=== PATIENT | male | born 1955 | race Caucasian/White ===

== ENCOUNTER → 2020-07-24 15:32 | Outpatient (BNVA) | payer OTHER, SELFPAY | PROVIDERS: PCP Nurse Practitioner Family; Visit Provider Internal Medicine Pulmonary Disease | DX: J90 Pleural effusion, not elsewhere classified (principal); R06.00 Dyspnea, unspecified | CPT/HCPCS: 99202 ==

== ENCOUNTER 2020-08-06 15:32 | Outpatient (REF) | payer OTHER, SELFPAY ==
--- NOTE | 2020-08-06 17:22 | PFT_ITS ---
Forced vital capacity, FEV1, [id number] are normal. MVV is slightly decreased, may be due to effort related issue. Post bronchodilator therapy, no significant change, but MVV is improved. Total lung capacity and residual volume normal. Diffusion capacity normal. CONCLUSION: Normal pulmonary function test, slight decrease in the MVV, probably effort related and did improve after bronchodilator therapy. Clinical correlation recommended. MD REHAN Culver/MODL / [id number]
== END 2020-08-06 15:33 | disposition home or self-care (01) ==
LOC: HO.RESP 15:32
PROVIDERS: PCP Nurse Practitioner Family; Visit Provider Internal Medicine Pulmonary Disease
DX: R06.00 Dyspnea, unspecified (principal)
CPT/HCPCS: 94060; 94727; 94729

== ENCOUNTER → 2020-08-27 14:05 | Outpatient (BNVA) | payer OTHER, SELFPAY | PROVIDERS: PCP Nurse Practitioner Family; Visit Provider Internal Medicine Pulmonary Disease ==

== ENCOUNTER → 2020-09-03 10:26 | Outpatient (BNVA) | payer OTHER, SELFPAY | PROVIDERS: PCP Nurse Practitioner Family; Visit Provider Internal Medicine Pulmonary Disease | DX: R06.00 Dyspnea, unspecified (principal) | CPT/HCPCS: 99212 ==

== ENCOUNTER 2020-09-06 10:48 | Outpatient (REF) | payer OTHER, SELFPAY ==
--- NOTE | ~2020-09-06 | XR_ITS ---
EXAMINATION: XR CHEST CLINICAL INFORMATION: Dyspnea COMPARISON: None TECHNIQUE: 2 views of the chest were obtained. FINDINGS: The cardiac and mediastinal contours are normal. The lungs are clear. There is no pleural effusion or pneumothorax. There are degenerative changes of the thoracic spine. There are postsurgical changes to the cervical spine. XR/XR chest 2V IMPRESSION: No evidence for acute disease in the chest.
== END 2020-09-06 10:49 | disposition home or self-care (01) ==
LOC: HO.XRAY 10:48
PROVIDERS: PCP Nurse Practitioner Family; Visit Provider Internal Medicine Pulmonary Disease
DX: R06.00 Dyspnea, unspecified (principal); J90 Pleural effusion, not elsewhere classified; I51.89 Other ill-defined heart diseases
CPT/HCPCS: 71046; 93005

== ENCOUNTER 2020-09-18 11:53 | Emergency (ER) | payer OTHER, SELFPAY ==
--- NOTE | 2020-09-18 | ECG_ITS ---
Test Reason : CHEST PAIN Blood Pressure : / mmHG Vent. Rate : 099 BPM Atrial Rate : 099 BPM P-R Int : 136 ms QRS Dur : 134 ms QT Int : 378 ms P-R-T Axes : 034 -21 056 degrees QTc Int : 485 ms Normal sinus rhythm Left bundle branch block Abnormal ECG No previous ECGs available Referred By: Generic ED Physician Electronically Signed By:KILEY RICH MD
--- NOTE | ~2020-09-18 | CT_ITS ---
EXAMINATION: CT ANGIOGRAM OF THE CHEST WITH AND WITHOUT CONTRAST (CT PULMONARY ANGIOGRAM FOR PE) CLINICAL INFORMATION: Shortness of breath and positive d-dimer COMPARISON: Chest x-ray earlier the same day TECHNIQUE: Prior to contrast administration, noncontrast localization images were obtained. Subsequently, multidetector volumetric imaging was performed from the thoracic inlet to below the diaphragms following the administration of 71 mL Omnipaque 350 intravenous contrast. No contrast reaction reported Sagittal, coronal, and MIP oblique sagittal reformatted images were obtained on the CT workstation, uploaded to PACS, and reviewed. This CT examination was performed using dose optimization techniques as appropriate, variously including the following: *Automated exposure control *Adjustment of mA and/or kV according to patient size (this includes techniques or standardized protocols for targeted exams where dose is matched to indication/reason for exam; i.e. extremities or head) *Use of iterative reconstruction technique Total exam dose-length product 406 mGy-cm FINDINGS: QUALITY OF STUDY/CONTRAST BOLUS: Satisfactory. PULMONARY ARTERIES: No central or segmental pulmonary emboli. THORACIC AORTA: No aneurysm or dissection. LUNG: Bibasilar atelectasis. Diffuse groundglass opacity, likely due to an expiratory scan. PLEURA: No pleural effusion or pneumothorax. MEDIASTINUM: Mild cardiomegaly. No pericardial effusion. No hilar or mediastinal lymphadenopathy. No evidence of septal bowing or right heart strain. CHEST WALL/AXILLA: No axillary or internal mammary lymphadenopathy. OSSEOUS STRUCTURES: No acute or suspicious osseous abnormality. UPPER ABDOMEN: There is a well-circumscribed water density structure in the right lobe of liver adjacent to gallbladder fossa likely a cyst. No biliary ductal dilatation. Gallbladder normal in appearance. No adrenal mass. No reflux of contrast into the hepatic veins to suggest elevated right heart pressures. CT/CT angio chest PE protocol IMPRESSION: No pulmonary embolus. Mild bibasilar atelectasis. Diffuse groundglass opacity throughout the lungs, most likely reflecting an expiratory scan rather than diffuse pulmonary abnormality. VTE: negative
--- NOTE | ~2020-09-18 | XR_ITS ---
EXAMINATION: XR CHEST CLINICAL INFORMATION: Shortness of breath COMPARISON: Chest radiographs 09/06/2020 TECHNIQUE: Portable upright AP view of the chest was obtained. FINDINGS: There are low lung volumes. The lungs are clear. The vascularity is normal. The heart is normal in size. The hilar and mediastinal contours are normal. There are mild multilevel level degenerative changes thoracic spine. XR/XR chest 1V IMPRESSION: Unremarkable examination.
[2020-09-18 12:05] VITALS: BP 156/88; PULSE 90; RESP 25; TEMP 36.9; O2SAT 97; BMI 34.5
--- NOTE | 2020-09-18 12:14 | ED_ITS ---
HPI - SOB/Dyspnea General Chief Complaint: Dyspnea Stated Complaint: CHEST PAIN Time Seen by Provider: 09/18/20 12:13 Source: patient Mode of arrival: ambulatory Limitations: no limitations History of Present Illness HPI Narrative: 2 months of shortness of breath including CT of chest, nuclear stress, echo, CXR. Patient states that he is unsure of his diagnosis. Patient feel that he has increased shortness of breath MD elicited complaint: shortness of breath Onset (ago): month(s) Timing: progressively worsening Severity: moderate Exacerbating factors: exertion Related Data Home Medications Medication Instructions Recorded Confirmed alfuzosin 10 mg tablet,extended 10 mg PO DAILY 07/24/20 release 24 hr cholecalciferol (vitamin D3) 125 125 mcg PO DAILY 07/24/20 mcg (5,000 unit) capsule finasteride 5 mg tablet 5 mg PO DAILY 07/24/20 levothyroxine 75 mcg tablet 75 mcg PO DAILY 07/24/20 sertraline 25 mg tablet 50 mg PO DAILY tab 07/24/20 trazodone 150 mg tablet 150 mg PO BEDTIME 07/24/20 Previous Rx's Medication Instructions Recorded furosemide 20 mg tablet 20 mg PO DAILY 30 Days #30 tab 07/24/20 metolazone 5 mg tablet 5 mg PO DAILY #90 tab 08/28/20 Allergies Allergy/AdvReac Type Severity Reaction Status Date / Time No Known Allergies Allergy Verified 09/06/20 10:49 Review of Systems Constitutional: Constitutional: Reports no additional constitutional complaints Eyes: Eyes: Reports no additional eye complaints ENT: Denies dizziness Cardiovascular: Cardiovascular: Reports no additional cardiovascular complaints Respiratory: Respiratory: Reports as per HPI Gastrointestinal: Gastrointestinal: Reports no additional gastrointestinal complaints Musculoskeletal: Musculoskeletal: Reports no additional musculoskeletal complaints Integumentary/Breasts: Skin/Breast: Denies rash Neurologic: Reports system reviewed and no additional complaints, except as documented, Denies dizziness and Denies Sensory deficit (Neuro) Psychiatric: Psychiatric: Denies anxiety PMFSH Past Medical History Medical History BPH (benign prostatic hyperplasia) Hypothyroidism Social History Social History (Updated 07/24/20 @ 15:40 by Linda Luna MA) Alcohol intake: never Smoking Status: Never smoker Use of substances other than those prescribed or required for medical reasons: No Advance Directives: No Advance Directives Information Provided: Yes Physical Exam Vital Signs: Vital Signs: Last Vital Signs Temp 98.5 F 09/18/20 12:05 Pulse 90 09/18/20 12:05 Resp 25 H 09/18/20 12:05 BP 156/88 H 09/18/20 12:05 Pulse Ox 97 09/18/20 12:05 Body Mass Index 34.5 Const: Other: Male looking short of breath, coughing Nutritional Appearance: overweight Orientation/consciousness: oriented to person and patient oriented x3 Limitations: no limitations HENMT: Head: Yes normal to inspection Ears: external ears normal General nose exam: Normal external nose present Mouth: Normal oral and palatal mucosa present and oropharynx normal Throat: Yes posterior oropharynx normal Eyes: General: appearance normal, both eyes and all related structures Neck: Other: supple Neck: Yes normal visual inspection Chest: Chest palpation & inspection: normal inspection of the chest Resp: Auscultation: clear to auscultation bilaterally Cardio: Jugular venous distension: no JVD Rate: regular rate Rhythm: regular rhythm Heart sounds: S1 normal heart sound present and S2 normal heart sound present GI: Inspection: Yes normal to inspection Palpation (GI): Soft to palpation, nontender and No hepatosplenomegaly present Auscultation: normal bowel sounds : General: Yes no CVA tenderness Back/Spine/Pelvis: Back: no CVA tenderness Skin: General skin exam: no rashes or lesions noted Neuro: General: oriented to person and patient oriented x3 Cranial nerves: Yes CN's II-XII intact bilaterally Motor exam (neuro): 5/5 motor strength present throughout Sensory Exam: No Sensory deficit (Neuro) Extrem: General: Yes normal to inspection Psych: Appearance: grossly normal Course Course Course Narrative: discussed with Dr. Holley will obtain bedside echo Reevaluation(s) Reevaluation #1: too late in the day for echo will obtain as outpatient MDM - SOB/Dyspnea MDM Narrative Medical decision making narrative: Also considered MN, LBBB on EKG is baseline Differential Diagnosis Differential diagnosis: Likely acute exacerbation of chronic obstructive airways disease, congestive heart failure, pulmonary embolism and pleural effusion Lab Data Result diagrams: 09/18/20 12:44 09/18/20 12:44 Labs: Lab Results 09/18/20 09/18/20 09/18/20 Range/Units 12:44 12:44 12:44 WBC 7.9 (4.8-10.8) X10*3/uL RBC 5.14 (4.60-5.80) X10*6/uL Hgb 15.9 (14.0-18.0) g/dl Hct 45.5 (42-52) % MCV 88.5 (80-98) fL MCH 30.9 (27.0-33.0) pg MCHC 34.9 (31.0-36.0) g/dl RDW 12.1 (11.0-16.0) % Plt Count 279 (160-400) X10*3/uL MPV 10.4 (9.4-12.4) fL Immature Gran % (Auto) 0.1 (0.0-0.4) % Neut % (Auto) 59.5 (45-73) % Lymph % (Auto) 28.1 (20-40) % [place] % (Auto) 11.5 H (2-11) % Eos % (Auto) 0.4 (0-4) % Baso % (Auto) 0.4 (0-2) % Lymph # (Auto) 2.2 (1.2-4.9) X10*3/uL [place] # (Auto) 0.9 (0.1-1.2) X10*3/uL Eos # (Auto) 0.0 (0.0-0.4) X10*3/uL Baso # (Auto) 0.0 (0.0-0.2) X10*3/uL Abs Immat Gran (auto) 0.01 (0.00-0.03) X10*3/uL Absolute Neuts (auto) 4.7 (2.0-8.3) X10*3/uL Absolute Nucleated RBC 0.000 (0.0-0.012) X10*3/uL Nucleated RBC % (auto) 0.0 (0.0-0.2) /100WBC D-Dimer 459 NG/ML ABG pH (7.35-7.45) ABG pCO2 (32-45) mmHg ABG pO2 (83-108) mmHg ABG HCO3 (22-26) mmol/L ABG O2 Saturation % ABG Base Excess Oxygen Given Sodium 137 (135-145) mmol/L Potassium 3.8 (3.3-5.1) mmol/L Chloride 97 (96-108) mmol/L Carbon Dioxide 30 H (22-29) mmol/L Anion Gap 14 (12-20) BUN 18 H (9-16) mg/dL Creatinine 1.01 (0.5-1.4) mg/dL Estim Creat Clear Calc 88.2 Estimated GFR > 60 Random Glucose 115 (60-115) mg/dL Calcium 10.3 H (8.4-10.2) mg/dL Troponin I High Sens (<3.5-35.0) ng/L 09/18/20 09/18/20 Range/Units 12:44 13:00 WBC (4.8-10.8) X10*3/uL RBC (4.60-5.80) X10*6/uL Hgb (14.0-18.0) g/dl Hct (42-52) % MCV (80-98) fL MCH (27.0-33.0) pg MCHC (31.0-36.0) g/dl RDW (11.0-16.0) % Plt Count (160-400) X10*3/uL MPV (9.4-12.4) fL Immature Gran % (Auto) (0.0-0.4) % Neut % (Auto) (45-73) % Lymph % (Auto) (20-40) % [place] % (Auto) (2-11) % Eos % (Auto) (0-4) % Baso % (Auto) (0-2) % Lymph # (Auto) (1.2-4.9) X10*3/uL [place] # (Auto) (0.1-1.2) X10*3/uL Eos # (Auto) (0.0-0.4) X10*3/uL Baso # (Auto) (0.0-0.2) X10*3/uL Abs Immat Gran (auto) (0.00-0.03) X10*3/uL Absolute Neuts (auto) (2.0-8.3) X10*3/uL Absolute Nucleated RBC (0.0-0.012) X10*3/uL Nucleated RBC % (auto) (0.0-0.2) /100WBC D-Dimer NG/ML ABG pH 7.61 H* (7.35-7.45) ABG pCO2 23 L (32-45) mmHg ABG pO2 107 (83-108) mmHg ABG HCO3 23 (22-26) mmol/L ABG O2 Saturation 98.0 % ABG Base Excess 4.6 Oxygen Given ROOM AIR Sodium (135-145) mmol/L Potassium (3.3-5.1) mmol/L Chloride (96-108) mmol/L Carbon Dioxide (22-29) mmol/L Anion Gap (12-20) BUN (9-16) mg/dL Creatinine (0.5-1.4) mg/dL Estim Creat Clear Calc Estimated GFR Random Glucose (60-115) mg/dL Calcium (8.4-10.2) mg/dL Troponin I High Sens 5.5 (<3.5-35.0) ng/L Imaging Data CT scan - chest: Radiologist's impression: No PE, question pulmonary parenchymal disease but most likely to poor inspiration Chest x-ray: Radiologist's impression: poor inspiration no infiltrate ECG Data Attestation: I personally reviewed and interpreted this ECG as follows: Interpretation: sinus 100, LBBB, old finding Critical Care Time Critical Care Time Attestation: I spent 30 minutes of critical care, with interventions, assessments, speaking to patient, consultants, and family. Discharge Plan Discharge Clinical Impression: Diastolic dysfunction, Dyspnea on exertion Patient Disposition: Home, Self-Care Instructions: Dyspnea (ED) Prescriptions: No Action metolazone 5 mg tablet 5 mg PO DAILY Qty: 90 RF: 0 furosemide [Lasix] 20 mg tablet 20 mg PO DAILY 30 Days Qty: 30 RF: 3 Referrals: Luisito Holley MD [Physician] - 2 days
[2020-09-18 12:51] LABS: MANUAL DIFF FLAG NO
[2020-09-18 12:52] LABS: Basophils Percent Auto 0.4 % (0-2); Eosinophils Percent Auto 0.4 % (0-4); Hematocrit 45.5 % (42-52); Hemoglobin 15.9 g/dl (14.0-18.0); Imm Gran Abs Auto 0.01 X10*3/uL (0.00-0.03); Imm Gran Pct Auto 0.1 % (0.0-0.4); Lymphocytes Absolute Auto 2.2 X10*3/uL (1.2-4.9); Lymphocytes Percent Auto 28.1 % (20-40); Mean Corpuscular HGB Conc 34.9 g/dl (31.0-36.0); Mean Corpuscular Hemoglobin 30.9 pg (27.0-33.0); Mean Corpuscular Volume 88.5 fL (80-98); Mean Platelet Volume 10.4 fL (9.4-12.4); Monocytes Absolute Auto 0.9 X10*3/uL (0.1-1.2); Monocytes Percent Auto 11.5 % (2-11); Neutrophils Absolute Auto 4.7 X10*3/uL (2.0-8.3); Neutrophils Percent Auto 59.5 % (45-73); Platelet Count 279 X10*3/uL (160-400); Red Blood Count 5.14 X10*6/uL (4.60-5.80); Red Cell Distribution Width 12.1 % (11.0-16.0); White Blood Count 7.9 X10*3/uL (4.8-10.8)
[2020-09-18 13:01] VITALS: O2SAT 98
[2020-09-18 13:01] LABS: D Dimer 459 NG/ML
[2020-09-18 13:08] LABS: Pt Ventilation O2% ROOM AIR
[2020-09-18 13:13] LABS: ABG PCO2 23 mmHg (32-45); Base Excess ABG 4.6; HCO3 ABG 23 mmol/L (22-26); PO2 ABG 107 mmHg (83-108)
[2020-09-18 13:15] LABS: pH ABG 7.61 (7.35-7.45)
[2020-09-18 13:39] LABS: Troponin-I High Sensitivity 5.5 ng/L (<3.5-35.0)
[2020-09-18 13:59] LABS: Anion Gap 14 (12-20); Blood Urea Nitrogen 18 mg/dL (9-16); Calcium 10.3 mg/dL (8.4-10.2); Carbon Dioxide 30 mmol/L (22-29); Chloride 97 mmol/L (96-108); Creatinine Clr Calc Pharmacy 88.2; Estimated Glomerular Filt Rate > 60; Glucose Random 115 mg/dL (60-115); Potassium 3.8 mmol/L (3.3-5.1); Sodium 137 mmol/L (135-145)
[2020-09-18] MEDS: iohexoL 350 MG/ML 100 ML INFUS..BTL IV (14:28)
[2020-09-18 16:06] LABS: Influenza A PCR NEGATIVE (Negative); Influenza B PCR NEGATIVE (Negative); Resp Syncy Virus RNA Qual PCR NEGATIVE (Negative); SARS COV2 PCR INHOUSE NEGATIVE (Negative)
[2020-09-18 16:23] VITALS: BP 134/84; PULSE 73; RESP 20; O2SAT 99
== END 2020-09-18 16:24 | disposition home or self-care (01) ==
PROVIDERS: Emergency Provider Emergency Medicine
DX: I50.30 Unspecified diastolic (congestive) heart failure (principal); R07.89 Other chest pain; R06.09 Other forms of dyspnea; Z20.822 Contact with and (suspected) exposure to COVID-19; E03.9 Hypothyroidism, unspecified; N40.0 Benign prostatic hyperplasia without lower urinary tract symptoms; Z79.899 Other long term (current) drug therapy
CPT/HCPCS: 0241U; 36415; 71045; 71275; 80048; 82803; 84484; 85025; 85379; 93005; 99285; 99291; Q9967

== ENCOUNTER 2020-09-30 | Outpatient (REF) | payer OTHER, SELFPAY ==
--- NOTE | ~2020-09-30 | CT_ITS ---
EXAMINATION: CT CHEST WITHOUT CONTRAST CLINICAL INFORMATION: Pleural effusion. COMPARISON: CT angiogram chest 09/18/2020. TECHNIQUE: Multidetector volumetric CT imaging of the chest was done. Axial MIP volume rendering provided. Sagittal and coronal reformatted images were obtained. This CT examination was performed using dose optimization techniques as appropriate, variously including the following: *Automated exposure control *Adjustment of mA and/or kV according to patient size (this includes techniques or standardized protocols for targeted exams where dose is matched to indication/reason for exam; i.e. extremities or head) *Use of iterative reconstruction technique DLP: 191 mGy-cm. FINDINGS: BULWARK CARPENTER: Elevated right hemidiaphragm. The lungs are otherwise clear. LUNGS: The lungs are somewhat expanded with elevated right hemidiaphragm. A subpleural 3 mm noncalcified nodule left lower lobe superior segment axial image 131/5. There is a 4 mm calcified nodule left upper lobe image 192/5. No additional nodule seen. There is plate-like atelectasis or scarring left lung base, lingula and right middle lobe. MEDIASTINUM: The heart size and the great vessels are normal caliber. The thyroid glands are symmetric and normal. The central trachea and bronchi are widely patent. No abnormal mediastinal or hilar lymphadenopathy. No pericardial effusion seen. PLEURA: There is no pleural effusion. No pleural mass or thickening. AXILLA: No lymphadenopathy. UPPER ABDOMEN: Unremarkable. OSSEOUS STRUCTURES: There is no lytic or sclerotic process seen. There is mild ventral spondylosis mid dorsal spine. CT/CT chest wo con IMPRESSION: 3 mm subpleural noncalcified and 4 mm calcified nodule left upper lobe are stable. Atelectasis or scarring left lower lobe, lingula and right middle lobe.
== END 2020-09-30 00:01 ==
LOC: HO.CT
PROVIDERS: Visit Provider Internal Medicine Pulmonary Disease
DX: R06.00 Dyspnea, unspecified (principal); J90 Pleural effusion, not elsewhere classified
CPT/HCPCS: 71250

== ENCOUNTER → 2020-10-08 15:31 | Outpatient (BNVA) | payer OTHER, SELFPAY | PROVIDERS: Visit Provider Internal Medicine Pulmonary Disease | DX: R06.00 Dyspnea, unspecified (principal); J90 Pleural effusion, not elsewhere classified | CPT/HCPCS: 99212 ==

== ENCOUNTER 2020-12-20 13:26 | Inpatient (IN) | payer OTHER, SELFPAY ==
--- NOTE | 2020-12-20 | ECG_ITS ---
Test Reason : CHEST PAIN Blood Pressure : / mmHG Vent. Rate : 068 BPM Atrial Rate : 068 BPM P-R Int : 150 ms QRS Dur : 078 ms QT Int : 400 ms P-R-T Axes : 020 000 012 degrees QTc Int : 425 ms Normal sinus rhythm Cannot rule out Anterior infarct , age undetermined Abnormal ECG When compared with ECG of 18-SEP-2020 11:58, Left bundle branch block is no longer Present Minimal criteria for Anterior infarct are now Present Referred By: Evangelina Powers Electronically Signed By:URIEL STEEN
--- NOTE | ~2020-12-20 | XR_ITS ---
EXAMINATION: XR CHEST CLINICAL INFORMATION: Chest pain COMPARISON: Chest CT 09/30/2020 TECHNIQUE: Frontal view of the chest was obtained. FINDINGS: The lungs are hypoexpanded and clear. Heart size and pulmonary vascularity is normal. No gross bony edema is seen. XR/XR chest 1V IMPRESSION: Hypoexpanded lungs without acute process.
--- NOTE | ~2020-12-20 | CT_ITS ---
EXAMINATION: CT ANGIOGRAM OF THE CHEST WITH AND WITHOUT CONTRAST (CT PULMONARY ANGIOGRAM FOR PE) CLINICAL INFORMATION: Reason for Exam Elevated D-dimer. SOB COMPARISON: CT chest 09/30/2020, CT angiogram chest 10/16/2020 TECHNIQUE: Prior to contrast administration, noncontrast localization images were obtained. Subsequently, multidetector volumetric imaging was performed from the thoracic inlet to below the diaphragms following the administration of 65 mL Omnipaque 350 intravenous contrast. No contrast reaction reported Sagittal, coronal, and MIP oblique sagittal reformatted images were obtained on the CT workstation, uploaded to PACS, and reviewed. This CT examination was performed using dose optimization techniques as appropriate, variously including the following: *Automated exposure control *Adjustment of mA and/or kV according to patient size (this includes techniques or standardized protocols for targeted exams where dose is matched to indication/reason for exam; i.e. extremities or head) *Use of iterative reconstruction technique Total exam dose-length product 331 mGy-cm FINDINGS: QUALITY OF STUDY/CONTRAST BOLUS: Satisfactory. PULMONARY ARTERIES: No central or segmental pulmonary emboli. THORACIC AORTA: No aneurysm or dissection. LUNG: No focal consolidation, nodules or masses. There is mild prominence of interstitial markings compared with the prior study suggesting possibly mild pulmonary vascular congestion. No overt pulmonary edema is see.. Left upper lobe calcified granuloma is present PLEURA: Trace pleural effusions are present. MEDIASTINUM: There is mild cardiac enlargement which appears increased in size when compared to the prior study. The heart measured a maximum transverse dimension of just under 12 cm previously and currently measures just over 14 cm. No pericardial effusion. No hilar or mediastinal lymphadenopathy. No evidence of septal bowing or right heart strain. CHEST WALL/AXILLA: No axillary or internal mammary lymphadenopathy. OSSEOUS STRUCTURES: No acute or suspicious osseous abnormality. UPPER ABDOMEN: Unremarkable. No reflux of contrast into the hepatic veins to suggest elevated right heart pressures. CT/CT angio chest PE protocol IMPRESSION: No evidence of pulmonary emboli Interval increase in heart size with question of mild pulmonary vascular congestion VTE: negative
[2020-12-20 13:30] VITALS: BP 160/90; PULSE 78; O2SAT 96
[2020-12-20 13:38] VITALS: BP 155/80; PULSE 71; RESP 16; TEMP 36.7; O2SAT 98; BMI 33.4
[2020-12-20 13:46] VITALS: PULSE 78
[2020-12-20 14:10] LABS: MANUAL DIFF FLAG NO
[2020-12-20 14:17] LABS: Basophils Percent Auto 0.6 % (0-2); Eosinophils Percent Auto 0.6 % (0-4); Hematocrit 44.8 % (42-52); Hemoglobin 15.3 g/dl (14.0-18.0); Imm Gran Abs Auto 0.02 X10*3/uL (0.00-0.03); Imm Gran Pct Auto 0.3 % (0.0-0.4); Lymphocytes Absolute Auto 1.8 X10*3/uL (1.2-4.9); Lymphocytes Percent Auto 25.9 % (20-40); Mean Corpuscular HGB Conc 34.2 g/dl (31.0-36.0); Mean Corpuscular Hemoglobin 31.4 pg (27.0-33.0); Mean Corpuscular Volume 91.8 fL (80-98); Mean Platelet Volume 10.7 fL (9.4-12.4); Monocytes Absolute Auto 0.7 X10*3/uL (0.1-1.2); Monocytes Percent Auto 9.5 % (2-11); Neutrophils Absolute Auto 4.4 X10*3/uL (2.0-8.3); Neutrophils Percent Auto 63.1 % (45-73); Platelet Count 203 X10*3/uL (160-400); Red Blood Count 4.88 X10*6/uL (4.60-5.80); Red Cell Distribution Width 12.3 % (11.0-16.0)
[2020-12-20 14:22] LABS: INTERNATIONAL NORM RATIO 1.1 (0.9-1.1); Prothrombin Time 12.7 SEC (10.8-13.0)
[2020-12-20 14:25] LABS: D Dimer 651 NG/ML; Partial Thromboplastin Time 32.8 SEC (24.1-38.0)
[2020-12-20 14:41] LABS: B Type Natriuretic Peptide 18 pg/mL (<100); Troponin-I High Sensitivity 3.6 ng/L (<3.5-35.0)
[2020-12-20 14:50] LABS: COVID-19 Test Negative (Negative); IDNOW Serial# 9DD0AD1C
[2020-12-20 15:10] LABS: Alanine Aminotransferase 20 U/L (0-40); Albumin Level 4.1 g/dL (3.5-5.0); Alkaline Phosphatase 69 U/L (39-117); Aspartate Amino Transferase 13 U/L (5-37); Bilirubin Direct 0.2 mg/dL (0.0-0.5); Bilirubin Total 0.5 mg/dL (0.0-1.0); Magnesium 2.1 mg/dL (1.6-2.6); Total Protein 6.2 g/dL (6.5-8.0)
[2020-12-20 15:31] LABS: Thyroid Stimulating Hormone 1.26 uIU/mL (0.32-4.0)
--- NOTE | 2020-12-20 15:33 | ED_ITS ---
HPI - Chest Pain General Chief Complaint: Chest Pain Stated Complaint: chest pain, sob Time Seen by Provider: 12/20/20 13:33 Source: patient and EMS Mode of arrival: EMS History of Present Illness HPI narrative: 65-year-old male with a past medical history of BPH, hypothyroid, presenting to the ED complaining of intermittent episodes of sharp chest pain and SOB lasting a few seconds while at rest today. Reports exertional SOB which he is being worked up for. Admits to nonproductive cough. Denies fever, chills, recent travel, history of blood clots, abdominal pain, nausea/vomiting, LE edema. Echo 10/13 did show small shunt from left to right only with Valsalva complaint: chest pain and chest discomfort Related Data Home Medications Medication Instructions Recorded Confirmed alfuzosin 10 mg tablet,extended 10 mg PO BEDTIME 07/24/20 12/20/20 release 24 hr finasteride 5 mg tablet 5 mg PO BEDTIME 07/24/20 12/20/20 levothyroxine 75 mcg tablet 75 mcg PO DAILY 07/24/20 12/20/20 sertraline 50 mg PO BEDTIME 12/20/20 12/20/20 trazodone 100 mg PO BEDTIME 12/20/20 12/20/20 Allergies Allergy/AdvReac Type Severity Reaction Status Date / Time No Known Allergies Allergy Verified 10/08/20 15:34 [facility] Past Medical History Medical History (Updated 12/20/20 @ 18:13 by LISSETTE Espino) BPH (benign prostatic hyperplasia) Bunion Depression Hypothyroidism Surgical History (Updated 12/20/20 @ 13:43 by Amarilys Chahal) H/O hand surgery H/O neck surgery S/P rotator cuff repair Social History Social History (Updated 07/24/20 @ 15:40 by Linda Luna MA) Alcohol intake: current Alcohol intake frequency: a few times a week Patient Tobacco Use Status: Never used Tobacco Use of substances other than those prescribed or required for medical reasons: No Advance Directives: Yes Advance Directives Information Provided: Yes Advance Directives on File: No Physical Exam Vital Signs: Vital Signs: Last Vital Signs Temp 98.7 F 12/20/20 16:22 Pulse 65 12/20/20 16:22 Resp 18 12/20/20 16:22 BP 146/79 H 12/20/20 16:22 Pulse Ox 97 12/20/20 16:22 Body Mass Index 33.4 Course Course Course Narrative: -patient had short run of V-tach on monitor -1535--no leukocytosis, D-dimer elevated to 651 > will obtain CTA to rule out PE -troponin less than 5 > will obtain 3 hour repeat XR chest 1V IMPRESSION: Hypoexpanded lungs without acute process. 1810- CT angio chest PE protocol IMPRESSION: No evidence of pulmonary emboli Interval increase in heart size with question of mild pulmonary vascular congestion VTE: negative -1814--patient admitted to hospitalist service MDM - Chest Pain MDM Narrative Medical decision making narrative: 65-year-old male with a past medical history of BPH, hypothyroid, presenting to the ED complaining of intermittent episodes of sharp chest pain and SOB lasting a few seconds while at rest today. Reports exertional SOB which he is being worked up for. Admits to nonproductive cough. Denies fever, chills, recent travel, history of blood clots, abdominal pain, nausea/vomiting, LE edema. Echo 10/13 did show small shunt from left to right only with Valsalva Medical Records Data Attestation: I reviewed the patient's medical records. Lab Data Attestation: I reviewed the patient's lab results. Result diagrams: 12/20/20 14:07 12/20/20 14:42 Labs: Lab Results 12/20/20 12/20/20 12/20/20 Range/Units 14:07 14:07 14:07 WBC 7.0 (4.8-10.8) X10*3/uL RBC 4.88 (4.60-5.80) X10*6/uL Hgb 15.3 (14.0-18.0) g/dl Hct 44.8 (42-52) % MCV 91.8 (80-98) fL MCH 31.4 (27.0-33.0) pg MCHC 34.2 (31.0-36.0) g/dl RDW 12.3 (11.0-16.0) % Plt Count 203 D (160-400) X10*3/uL MPV 10.7 (9.4-12.4) fL Immature Gran % (Auto) 0.3 (0.0-0.4) % Neut % (Auto) 63.1 (45-73) % Lymph % (Auto) 25.9 (20-40) % [place] % (Auto) 9.5 (2-11) % Eos % (Auto) 0.6 (0-4) % Baso % (Auto) 0.6 (0-2) % Lymph # (Auto) 1.8 (1.2-4.9) X10*3/uL [place] # (Auto) 0.7 (0.1-1.2) X10*3/uL Eos # (Auto) 0.0 (0.0-0.4) X10*3/uL Baso # (Auto) 0.0 (0.0-0.2) X10*3/uL Abs Immat Gran (auto) 0.02 (0.00-0.03) X10*3/uL Absolute Neuts (auto) 4.4 (2.0-8.3) X10*3/uL Absolute Nucleated RBC 0.000 (0.0-0.012) X10*3/uL Nucleated RBC % (auto) 0.0 (0.0-0.2) /100WBC PT 12.7 (10.8-13.0) SEC INR 1.1 (0.9-1.1) APTT 32.8 (24.1-38.0) SEC D-Dimer 651 NG/ML Sodium (135-145) mmol/L Potassium (3.3-5.1) mmol/L Chloride (96-108) mmol/L Carbon Dioxide (22-29) mmol/L Anion Gap (12-20) BUN (9-16) mg/dL Creatinine (0.5-1.4) mg/dL Estim Creat Clear Calc Estimated GFR Random Glucose (60-115) mg/dL Calcium (8.4-10.2) mg/dL Magnesium (1.6-2.6) mg/dL Total Bilirubin (0.0-1.0) mg/dL Direct Bilirubin (0.0-0.5) mg/dL AST (5-37) U/L ALT (0-40) U/L Alkaline Phosphatase (39-117) U/L Troponin I High Sens (<3.5-35.0) ng/L B-Natriuretic Peptide 18 (<100) pg/mL Total Protein (6.5-8.0) g/dL Albumin (3.5-5.0) g/dL TSH (0.32-4.0) uIU/mL COVID-19 (SUZETTE) (Negative) COVID-19 Clin Com 12/20/20 12/20/20 12/20/20 Range/Units 14:07 14:21 14:42 WBC (4.8-10.8) X10*3/uL RBC (4.60-5.80) X10*6/uL Hgb (14.0-18.0) g/dl Hct (42-52) % MCV (80-98) fL MCH (27.0-33.0) pg MCHC (31.0-36.0) g/dl RDW (11.0-16.0) % Plt Count (160-400) X10*3/uL MPV (9.4-12.4) fL Immature Gran % (Auto) (0.0-0.4) % Neut % (Auto) (45-73) % Lymph % (Auto) (20-40) % [place] % (Auto) (2-11) % Eos % (Auto) (0-4) % Baso % (Auto) (0-2) % Lymph # (Auto) (1.2-4.9) X10*3/uL [place] # (Auto) (0.1-1.2) X10*3/uL Eos # (Auto) (0.0-0.4) X10*3/uL Baso # (Auto) (0.0-0.2) X10*3/uL Abs Immat Gran (auto) (0.00-0.03) X10*3/uL Absolute Neuts (auto) (2.0-8.3) X10*3/uL Absolute Nucleated RBC (0.0-0.012) X10*3/uL Nucleated RBC % (auto) (0.0-0.2) /100WBC PT (10.8-13.0) SEC INR (0.9-1.1) APTT (24.1-38.0) SEC D-Dimer NG/ML Sodium 140 (135-145) mmol/L Potassium 4.0 (3.3-5.1) mmol/L Chloride 106 (96-108) mmol/L Carbon Dioxide 27 (22-29) mmol/L Anion Gap 11 L (12-20) BUN 16 (9-16) mg/dL Creatinine 0.92 (0.5-1.4) mg/dL Estim Creat Clear Calc 94.1 Estimated GFR > 60 Random Glucose 111 (60-115) mg/dL Calcium 9.0 D (8.4-10.2) mg/dL Magnesium 2.1 (1.6-2.6) mg/dL Total Bilirubin 0.5 (0.0-1.0) mg/dL Direct Bilirubin 0.2 (0.0-0.5) mg/dL AST 13 (5-37) U/L ALT 20 (0-40) U/L Alkaline Phosphatase 69 (39-117) U/L Troponin I High Sens 3.6 (<3.5-35.0) ng/L B-Natriuretic Peptide (<100) pg/mL Total Protein 6.2 L (6.5-8.0) g/dL Albumin 4.1 (3.5-5.0) g/dL TSH 1.26 (0.32-4.0) uIU/mL COVID-19 (SUZETTE) Negative (Negative) COVID-19 Clin Com See Note 12/20/20 Range/Units 16:59 WBC (4.8-10.8) X10*3/uL RBC (4.60-5.80) X10*6/uL Hgb (14.0-18.0) g/dl Hct (42-52) % MCV (80-98) fL MCH (27.0-33.0) pg MCHC (31.0-36.0) g/dl RDW (11.0-16.0) % Plt Count (160-400) X10*3/uL MPV (9.4-12.4) fL Immature Gran % (Auto) (0.0-0.4) % Neut % (Auto) (45-73) % Lymph % (Auto) (20-40) % [place] % (Auto) (2-11) % Eos % (Auto) (0-4) % Baso % (Auto) (0-2) % Lymph # (Auto) (1.2-4.9) X10*3/uL [place] # (Auto) (0.1-1.2) X10*3/uL Eos # (Auto) (0.0-0.4) X10*3/uL Baso # (Auto) (0.0-0.2) X10*3/uL Abs Immat Gran (auto) (0.00-0.03) X10*3/uL Absolute Neuts (auto) (2.0-8.3) X10*3/uL Absolute Nucleated RBC (0.0-0.012) X10*3/uL Nucleated RBC % (auto) (0.0-0.2) /100WBC PT (10.8-13.0) SEC INR (0.9-1.1) APTT (24.1-38.0) SEC D-Dimer NG/ML Sodium (135-145) mmol/L Potassium (3.3-5.1) mmol/L Chloride (96-108) mmol/L Carbon Dioxide (22-29) mmol/L Anion Gap (12-20) BUN (9-16) mg/dL Creatinine (0.5-1.4) mg/dL Estim Creat Clear Calc Estimated GFR Random Glucose (60-115) mg/dL Calcium (8.4-10.2) mg/dL Magnesium (1.6-2.6) mg/dL Total Bilirubin (0.0-1.0) mg/dL Direct Bilirubin (0.0-0.5) mg/dL AST (5-37) U/L ALT (0-40) U/L Alkaline Phosphatase (39-117) U/L Troponin I High Sens 3.6 (<3.5-35.0) ng/L B-Natriuretic Peptide (<100) pg/mL Total Protein (6.5-8.0) g/dL Albumin (3.5-5.0) g/dL TSH (0.32-4.0) uIU/mL COVID-19 (SUZETTE) (Negative) COVID-19 Clin Com ECG Data ECG #1: Attestation: I personally reviewed and interpreted this ECG as follows: ECG interpretation date: 12/20/20 ECG interpretation time: 13:50 Interpretation: EKG normal sinus rhythm with a rate is 68. Nonischemic/no STEMI Discharge Plan Discharge Clinical Impression: Chest pain, Arrhythmia Patient Disposition: Admitted As Inpatient
[2020-12-20 16:22] VITALS: BP 146/79; PULSE 65; RESP 18; TEMP 37.1; O2SAT 97
[2020-12-20 16:35] LABS: Anion Gap 11 (12-20); Blood Urea Nitrogen 16 mg/dL (9-16); Carbon Dioxide 27 mmol/L (22-29); Chloride 106 mmol/L (96-108); Creatinine Clr Calc Pharmacy 94.1; Estimated Glomerular Filt Rate > 60; Glucose Random 111 mg/dL (60-115); Sodium 140 mmol/L (135-145)
[2020-12-20] MEDS: iohexoL 350 MG/ML 100 ML INFUS..BTL IV (16:55)
--- NOTE | 2020-12-20 17:10 | HE.PHANOTE ---
MED REC IS COMPLETE, NO ISSUES
--- NOTE | 2020-12-20 17:40 | PC.NURSE ---
Pt has had 1 episode of vtach captured on monitor, 8 beats, reported sob and sharp intermittent CP now resolved.
[2020-12-20 17:43] LABS: Troponin-I High Sensitivity 3.6 ng/L (<3.5-35.0)
--- NOTE | 2020-12-20 19:27 | PC.NURSE ---
X1 in attempt to give report
[2020-12-20 19:31] LABS: Amphetamine Screen Urine Not Detected (Not Detect); Barbiturates, Urine Not Detected (Not Detect); Benzodiazepines Screen Urine Not Detected (Not Detect); Cannabinoid Screen Urine Not Detected (Not Detect); Cocaine Screen Urine Not Detected (Not Detect); Opiate Screen Urine Not Detected (Not Detect); Phencyclidine Screen Urine Not Detected (Not Detect)
[2020-12-20] MEDS: Sertraline HCL 50 MG TABLET PO (20:18)
[2020-12-20] MEDS: Enoxaparin Sodium 40 MG/0.4 ML SYRINGE SUBCUT (20:18)
[2020-12-20] MEDS: traZODone HCL 100 MG TABLET PO (20:18)
[2020-12-20] MEDS: Furosemide 20 MG/2 ML VIAL IVPUSH (20:19)
[2020-12-20 21:02] VITALS: BP 170/85; PULSE 74; RESP 22; TEMP 36.7; O2SAT 97
--- NOTE | 2020-12-20 21:06 | HP_ITS ---
DATE OF SERVICE: 12/20/2020 CHIEF COMPLAINT: Chest pain. HISTORY OF PRESENTING ILLNESS: This is a very pleasant 65-year-old gentleman with past medical history significant for hypothyroidism, BPH, history of intermittent chest pain since 2012, as well as history of shortness of breath since June last year, presented to [facility] due to multiple episodes of sharp pain that occurred this afternoon. Patient described it as a sharp sensation in mid chest, this lasted for seconds. He had 4 episodes within 20-minute duration. Then later he had few more episodes and then had multiple other episodes mostly mid chest and on the right-sided side of the chest that he felt deeper in the chest. He has chronic shortness of breath. Denies any change in dyspnea. According to him, he gets shortness of breath with any activity as well as coughing episodes. He has been previously treated with Lasix that was recently stopped in September due to hypokalemia. He has been under care of manager insurance as well as guard range. 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 Patient also has possibility of membranous ventricular septal defect. He is supposed to undergo cardiopulmonary tests to find the cause of his ongoing intermittent chest pain and shortness of breath, but since this pain was different than his usual and more frequent episodes, he came to the emergency room, where workup revealed a BNP of 18, troponin of 3.6, he had an elevated D-dimer. Therefore, a CTA chest was obtained that showed no PE, but showed mild pulmonary vascular congestion. Patient electrolytes and magnesium are within normal range. Patient was noted to have a short run of ventricular tachycardia that resolved without any treatment. Patient is now being admitted for further monitoring and treatment for his frequent episode of sharp pain. PAST MEDICAL HISTORY: Significant for: 1. BPH. 2. Hypothyroidism. 3. Intermittent chest pain and shortness of breath with activity, ongoing for several months. PAST SURGICAL HISTORY: The patient had a C-spine surgery in 2018 and 2019. He also had hand surgery done. He also had 2 bunion surgeries in the past. SOCIAL HISTORY: The patient is a nonsmoker. He socially drinks alcohol. 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 FAMILY HISTORY: Father had hypertension and had multiple MIs in his 60s. Mother of liver cancer. ALLERGIES: HE HAS NO KNOWN DRUG ALLERGIES. MEDICATIONS ON ADMISSION: Finasteride 5 mg p.o. at bedtime, levothyroxine 75 mcg daily, sertraline 50 mg at bedtime, trazodone 100 mg daily, and alfuzosin 10 mg tablet at bedtime. Medication reconciliation needs to be done. REVIEW OF SYSTEMS: BATCH FREEZER: The patient complained of mild headache. CVS: As mentioned in the HPI. GI: He denies nausea, vomiting, abdominal pain, or diarrhea. : He has difficulty initiating urination, otherwise denies frequency or urgency. Rest of all other systems are reviewed and are negative. PHYSICAL EXAMINATION: GENERAL: The patient is resting comfortably, does not appear to be in acute distress. VITAL SIGNS: BP 146/79 with a pulse of 65, respiratory rate 18, he is afebrile, O2 saturation 97% on room air. HEENT: Pupils equal, round, and reactive to light and accommodation. Extraocular muscles intact. Anicteric sclerae. NECK: Supple. Positive JVD. LUNGS: Clear to auscultation with no wheeze or crackles. ABDOMEN: Obese, soft, nontender. Bowel sounds are audible. EXTREMITIES: Without clubbing, cyanosis, or edema. NEUROLOGIC: Nonfocal. Speech is clear. PSYCH: Appropriate affect. LABORATORY DATA: Showed a sodium 140, potassium 4, chloride 106, BUN 16, creatinine of 0.92, magnesium 2.1. Troponin 3.6. TSH of 1.26. Urine toxicology is pending. Hemoglobin 15.3, hematocrit 44, platelet of 203, WBC of 7. INR of 1.1. D-dimer of 651. RADIOLOGY DATA: Chest x-ray showed no acute process. CTA chest showed no evidence of PE. Interval increase in heart size with question of mild pulmonary vascular congestion. EKG showed normal sinus rhythm, no acute ST changes. ASSESSMENT AND PLAN: A 65-year-old gentleman with past medical history of hypothyroidism, benign prostate hypertrophy, as well as intermittent chest pain with constant chest pressure, shortness of breath with activity, presented to [facility] with multiple episodes of sharp pain, different than his baseline chest pressure, frequent episodes with chronic persistent shortness of breath. The patient's workup so far is nonrevealing. The patient will be admitted for continued monitoring and treatment. 1. Chest pain. The patient presented with multiple episodes of chest pain lasting for few seconds. The patient's troponin and EKG not suggestive of acute ischemia. However, patient noted to have short run of ventricular tachycardia, question pain related to arrhythmia. We will admit the patient to telemonitor. Keep magnesium above 2 and potassium greater than 4. We will obtain Cardiology consultation for further workup. 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 2. Mild pulmonary congestion. Patient's CTA chest is suggestive of mild pulmonary edema. Patient has been worked up as outpatient by Cardiology, Dr. Hansen, and had an echocardiogram done that showed a small membraneous ventricular septal defect since he was noted to have bubbles from [id number] only with Valsalva maneuver. He was noted to have no valve abnormalities. We will discuss with Cardiology regarding repeating the echocardiogram. 3. History of hypothyroidism. Continue Synthroid. TSH is within normal range. 4. Deep vein thrombosis prophylaxis. The patient will be placed on Lovenox. 5. Code status. The patient wishes to be full code. MD JUAN CARLOS Parisi/ROBERT / [id number] YOLANDA
[2020-12-20] MEDS: 0.9 % Sodium Chloride Flush 3 ML SYRINGE IVFLUSH (22:29)
[2020-12-20] MEDS: Finasteride 5 MG TABLET PO (22:29)
[2020-12-20 23:31] VITALS: BP 116/66; PULSE 67; RESP 18; TEMP 36.6; O2SAT 98
[2020-12-21 03:24] VITALS: BP 149/79; PULSE 63; RESP 18; TEMP 36.2; O2SAT 98
[2020-12-21] MEDS: Levothyroxine Sodium 75 MCG TABLET PO (06:03)
[2020-12-21 07:45] VITALS: BP 134/74; PULSE 65; RESP 18; TEMP 36.5; O2SAT 94
[2020-12-21] MEDS: 0.9 % Sodium Chloride Flush 3 ML SYRINGE IVFLUSH (08:02)
--- NOTE | 2020-12-21 10:35 | PM.CNCAR ---
History of Present Illness History of Present Illness Date of Service: 12/21/20 Consult reason: shortness of breath Chief complaint: chest pain/shortness of breath Narrative: This is a cardiology consultation regarding shortness of breath and chest pain. Patient follows up with Dr. Hansen from [facility]. He states that he underwent cervical spine surgery last March. Since June, he has been having shortness of breath with any form of physical activity. He also gets sharp chest pains are momentary. They happened a few times as today. He was seen in the ER for the above where there was a concern for NSVT and then that led to the hospitalization. Patient states that prior to last June, he did have the shortness of breath. He has no other cardiac history like coronary disease myocardial infarction or cardiomyopathy. It seems he has had an extensive workup including cardiac catheterization but I do not have results of that. However I did review his other studies including echocardiogram, coronary CTA and stress testing. Review of Systems Review of Systems: Yes all other systems are reviewed and are negative Cardiovascular: Cardiovascular: Reports as per HPI, Reports no additional cardiovascular complaints, Denies acrocyanosis, Denies cool extremities, Denies painful fingertips, Reports chest pain, Reports chest pain at rest, Denies diaphoresis, Denies syncope, Denies irregular heart rhythm, Denies claudication, Denies leg edema, Denies lightheadedness, Denies palpitations and Reports dyspnea Respiratory: Respiratory: Reports dyspnea Neurologic: Denies syncope Endocrine: Endocrine: Denies palpitations PMF Past Medical History Medical History (Updated 12/21/20 @ 10:40 by Jorge Lozano MD) BPH (benign prostatic hyperplasia) Bunion Depression Hypothyroidism Surgical History Surgical History (Updated 12/20/20 @ 13:43 by Amarilys Chahal) H/O hand surgery H/O neck surgery S/P rotator cuff repair Social History Social History (Updated 07/24/20 @ 15:40 by Linda Luna MA) Household Members: Spouse Housing: House Do you presently have visiting nurse or other home services: No Alcohol intake: current Alcohol intake frequency: a few times a week Patient Tobacco Use Status: Never used Tobacco Use of substances other than those prescribed or required for medical reasons: No Currently Displaying Signs/Symptoms of Drug Intoxication Withdrawal: No Have you been hit, kicked, punched, or otherwise hurt by someone within the past year? If so, by whom?: No Do you feel safe in your current relationship?: Yes Is there a partner from a previous relationship who is making you feel unsafe now?: No Are you made to feel afraid or neglected: No Advance Directives: Yes Advance Directives Information Provided: Yes Advance Directives on File: No (not on file) Advance Directives Date on File: 12/20/20 Do you have thoughts of harming others: None Do you have a plan to hurt others: No Plan Recently lost weight without trying: No Nutrition Risks: No Nutritional Risk Poor oral hygiene: No Meds Allergies Allergy/AdvReac Type Severity Reaction Status Date / Time No Known Allergies Allergy Verified 10/08/20 15:34 Active Medications: Current Medications Generic Name Dose Route Start Last Admin Trade Name Freq PRN Reason Stop Dose Admin Acetaminophen 650 mg 12/20/20 18:58 Acetaminophen 325 Mg Tablet PO Q6H PRN Pain, Mild (Pain Scale 1-3) Enoxaparin Sodium 40 mg 12/20/20 19:00 12/20/20 20:18 Enoxaparin Sodium 40 Mg/0.4 Ml Syringe SUBCUT 40 mg Q24H MAR Administration Finasteride 5 mg 12/20/20 21:00 12/20/20 22:29 Finasteride 5 Mg Tablet PO 5 mg BEDTIME MAR Administration Levothyroxine Sodium 75 mcg 12/21/20 06:00 12/21/20 06:03 Levothyroxine Sodium 75 Mcg Tablet PO 75 mcg DAILY@0600 MAR Administration Ondansetron HCl 4 mg 12/20/20 18:58 Ondansetron Hcl 4 Mg/2 Ml Vial IVPUSH Q8H PRN Nausea and Vomiting Pharmacy Consult 1 each 12/20/20 16:20 Consult Rx Perform Med Rec MISCELLANE ONCE PRN Consult order Sertraline HCl 50 mg 12/20/20 21:00 12/20/20 20:18 Sertraline Hcl 50 Mg Tablet PO 50 mg BEDTIME MAR Administration Sodium Chloride 3 ml 12/21/20 00:00 12/21/20 08:02 0.9 % Sodium Chloride Flush 3 Ml Syringe IVFLUSH 3 ml QSHIFT MAR Administration Trazodone HCl 100 mg 12/20/20 21:00 12/20/20 20:18 Trazodone Hcl 100 Mg Tablet PO 100 mg BEDTIME MAR Administration Home Medications Medication Instructions Recorded Confirmed Last Taken Type alfuzosin 10 mg tablet,extended 10 mg PO BEDTIME 07/24/20 12/20/20 12/12/20 History release 24 hr finasteride 5 mg tablet 5 mg PO BEDTIME 07/24/20 12/20/20 12/19/20 History levothyroxine 75 mcg tablet 75 mcg PO DAILY 07/24/20 12/20/20 12/19/20 History sertraline 50 mg PO BEDTIME 12/20/20 12/20/20 12/19/20 History trazodone 100 mg PO BEDTIME 12/20/20 12/20/20 12/19/20 History Physical Exam Vital Signs: Vital Signs: Last Vital Signs Temp 97.7 F 12/21/20 07:45 Pulse 65 12/21/20 07:45 Resp 18 12/21/20 07:45 BP 134/74 12/21/20 07:45 Pulse Ox 94 12/21/20 07:45 Body Mass Index 33.4 Const: General: cooperative, comfortable and no acute distress Orientation/consciousness: patient oriented x3 HENMT: Other: Unremarkable Neck: Neck: Yes normal visual inspection Chest: Chest palpation & inspection: normal inspection of the chest Resp: Auscultation: clear to auscultation bilaterally, no crackles and no wheezes Cardio: Jugular venous distension: no JVD Palpation: normal PMI Heart sounds: S1 normal heart sound present, S2 normal heart sound present, no gallops, no murmurs and no rubs GI: Palpation (GI): Soft to palpation Back/Spine/Pelvis: Other: unremarkable Skin: General skin exam: no rashes or lesions noted Neuro: General: patient oriented x3 Extrem: General: Yes no clubbing, cyanosis or edema Psych: Mental Status: mental status grossly normal Results Labs and Meds Result diagrams: 12/20/20 14:07 12/20/20 14:42 Lab results: Laboratory Results - last 24 hr 12/20/20 12/20/20 12/20/20 14:07 14:07 14:07 WBC 7.0 RBC 4.88 Hgb 15.3 Hct 44.8 MCV 91.8 MCH 31.4 MCHC 34.2 RDW 12.3 Plt Count 203 D MPV 10.7 Immature Gran % (Auto) 0.3 Neut % (Auto) 63.1 Lymph % (Auto) 25.9 [place] % (Auto) 9.5 Eos % (Auto) 0.6 Baso % (Auto) 0.6 Lymph # (Auto) 1.8 [place] # (Auto) 0.7 Eos # (Auto) 0.0 Baso # (Auto) 0.0 Abs Immat Gran (auto) 0.02 Absolute Neuts (auto) 4.4 Absolute Nucleated RBC 0.000 Nucleated RBC % (auto) 0.0 PT 12.7 INR 1.1 APTT 32.8 D-Dimer 651 Sodium Potassium Chloride Carbon Dioxide Anion Gap BUN Creatinine Estim Creat Clear Calc Estimated GFR Random Glucose Calcium Magnesium Total Bilirubin Direct Bilirubin AST ALT Alkaline Phosphatase Troponin I High Sens B-Natriuretic Peptide 18 Total Protein Albumin TSH Urine Opiates Screen Ur Barbiturates Screen Ur Phencyclidine Scrn Ur Amphetamines Screen U Benzodiazepines Scrn Urine Cocaine Screen U Marijuana (THC) Screen COVID-19 ([employer]) [employer] 12/20/20 12/20/20 12/20/20 14:07 14:21 14:42 WBC RBC Hgb Hct MCV MCH MCHC RDW Plt Count MPV Immature Gran % (Auto) Neut % (Auto) Lymph % (Auto) [place] % (Auto) Eos % (Auto) Baso % (Auto) Lymph # (Auto) [place] # (Auto) Eos # (Auto) Baso # (Auto) Abs Immat Gran (auto) Absolute Neuts (auto) Absolute Nucleated RBC Nucleated RBC % (auto) PT INR APTT D-Dimer Sodium 140 Potassium 4.0 Chloride 106 Carbon Dioxide 27 Anion Gap 11 L BUN 16 Creatinine 0.92 Estim Creat Clear Calc 94.1 Estimated GFR > 60 Random Glucose 111 Calcium 9.0 D Magnesium 2.1 Total Bilirubin 0.5 Direct Bilirubin 0.2 AST 13 ALT 20 Alkaline Phosphatase 69 Troponin I High Sens 3.6 B-Natriuretic Peptide Total Protein 6.2 L Albumin 4.1 TSH 1.26 Urine Opiates Screen Ur Barbiturates Screen Ur Phencyclidine Scrn Ur Amphetamines Screen U Benzodiazepines Scrn Urine Cocaine Screen U Marijuana (THC) Screen COVID-19 ([employer]) Negative COVID-19 [employer] See Note 12/20/20 12/20/20 16:59 19:01 WBC RBC Hgb Hct MCV MCH MCHC RDW Plt Count MPV Immature Gran % (Auto) Neut % (Auto) Lymph % (Auto) [place] % (Auto) Eos % (Auto) Baso % (Auto) Lymph # (Auto) [place] # (Auto) Eos # (Auto) Baso # (Auto) Abs Immat Gran (auto) Absolute Neuts (auto) Absolute Nucleated RBC Nucleated RBC % (auto) PT INR APTT D-Dimer Sodium Potassium Chloride Carbon Dioxide Anion Gap BUN Creatinine Estim Creat Clear Calc Estimated GFR Random Glucose Calcium Magnesium Total Bilirubin Direct Bilirubin AST ALT Alkaline Phosphatase Troponin I High Sens 3.6 B-Natriuretic Peptide Total Protein Albumin TSH Urine Opiates Screen Not Detected Ur Barbiturates Screen Not Detected Ur Phencyclidine Scrn Not Detected Ur Amphetamines Screen Not Detected U Benzodiazepines Scrn Not Detected Urine Cocaine Screen Not Detected U Marijuana (THC) Screen Not Detected COVID-19 ([facility]) COVID-19 Clin Com ECG Attestation: I personally reviewed and interpreted this ECG as follows: Interpretation: EKG with sinus rhythm at 68/min; cannot exclude anterior infarct but could be just from body habitus and lead placement. Imaging Radiologist's impression: Impressions Chest X-Ray 12/20/20 14:01 IMPRESSION: Hypoexpanded lungs without acute process. 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 Echocardiogram from June shows LVEF of 55-60%, normal wall thickness and no wall motion abnormalities with grade 1 diastolic dysfunction. There is no significant valvular pathology. Pulmonary hypertension could not be assessed. During the stress test, he underwent pharmacological stress with regadenoson. With injection of regadenoson, he did develop a left bundle-branch block pattern. However the nuclear study did not show any perfusion abnormalities at all. In the coronary CTA there was mild, 30% narrowing in the mid LAD. 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 Otherwise, there was no significant coronary disease or other abnormalities. Overall, the above do not explain his symptoms. He may need a cardiopulmonary stress test to assess this further. The 8 beat run of wide complex tachycardia could be due to the fact that he intermittently has a wider QRS suggesting intermittent left bundle which can be clearly seen in telemetry. I believe this is much less likely to represent NSVT. Ok for discharge from cardiac. Further workup to be pursued as an outpatient. Procedures Date of Service Date of Service: 12/21/20
[2020-12-21 11:23] VITALS: BP 125/73; PULSE 71; RESP 16; TEMP 37.2; O2SAT 95
--- NOTE | 2020-12-21 11:33 | PM.DS ---
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 HISTORY OF PRESENTING ILLNESS: This is a very pleasant 65-year-old gentleman with past medical history significant for hypothyroidism, BPH, history of intermittent chest pressure since 2012 and history of shortness of breath since June last year,presented to [facility] due to multiple episodes of sharp pain that occurred this afternoon. Patient described it as a sharp sensation in mid chest, this lasted for seconds. He had 4 episodes within 20-minute duration, later he had few more episodes and then had multiple other episodes mostly localized to mid chest and on the right-side of the chest that he felt deeper in the chest. He has chronic shortness of breath. Denies any change in dyspnea. According to him, he gets shortness of breath with any activity as well as coughing episodes. He has been previously treated with Lasix that was recently stopped in September due to hypokalemia. 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 He is supposed to undergo cardiopulmonary tests to find the cause of his ongoing intermittent chest pain and shortness of breath, but since this pain was different than his usual and more frequent episodes, he came to the emergency room, where workup revealed a BNP of 18, troponin of 3.6, he had an elevated D-dimer. Therefore, a CTA chest was obtained that showed no PE, but showed mild pulmonary vascular congestion. Patient electrolytes and magnesium are within normal range. Patient was noted to have a short run of ventricular tachycardia that resolved without any treatment. Patient is now being admitted for further monitoring and treatment for his frequent episode of sharp pain. PAST MEDICAL HISTORY: Significant for: 1. BPH. 2. Hypothyroidism. 3. Intermittent chest pain and shortness of breath with activity, ongoing for several months. Hospital course Patient was admitted due to multiple episodes of sharp localize chest pain lasting few seconds, during course of hospitalization patient remained hemodynamically stable, his troponin and BNP is unremarkable EKG showed no acute ischemia, patient seen by tobacco grader they reviewed patient old records and since patient has no prior history of coronary artery disease and no significant Abnormality on cardiac catheterization other than anomolous origin of circumflex artery, Cardio recommend to discharge patient home, to have continued outpatient cardiopulmonary evaluation Patient has intermittent narrow vs wide qrs complexes suggesting intermittent left bundle, that were felt to be ventricular tachycardia in the emergency room, telemetry showed no arrhythmia Patient electrolytes are within normal range, he has been recommended to continue home medications. CTA chest showed mild pulmonary vascular congestion therefore treated with iv lasix recommend close follow up with cardiology for continjued use of lasix clinically appears euvolemic. Time Spent with Patient Time attestation: Total time spent providing and/or coordinating discharge services: Discharge coordination time: Greater than 30 minutes Quality: Stroke Does the patient have a stroke diagnosis?: No Physical Exam Vital Signs: Vital Signs: Last Vital Signs Temp 98.9 F 12/21/20 11:23 Pulse 71 12/21/20 11:23 Resp 16 12/21/20 11:23 BP 125/73 12/21/20 11:23 Pulse Ox 95 12/21/20 11:23 Body Mass Index 33.4 General patient resting comfortably in no acute distress. Neck is supple no JVD. CVS regular rate rhythm, Respiratory lungs clear to auscultation, no respiratory distress, no wheeze, no rhonchi. Gastrointestinal abdomen soft, nontender, bowel sounds audible, no guarding , no rigidity. Extremities no clubbing cyanosis or edema. Neuro nonfocal patient moving all 4 extremity speech clear. Skin no rash DS: Data Data Completed and Pending Labs on day of discharge: Laboratory Results - last 24 hr 12/20/20 12/20/20 12/20/20 14:07 14:07 14:07 WBC 7.0 RBC 4.88 Hgb 15.3 Hct 44.8 MCV 91.8 MCH 31.4 MCHC 34.2 RDW 12.3 Plt Count 203 D MPV 10.7 Immature Gran % (Auto) 0.3 Neut % (Auto) 63.1 Lymph % (Auto) 25.9 [place] % (Auto) 9.5 Eos % (Auto) 0.6 Baso % (Auto) 0.6 Lymph # (Auto) 1.8 [place] # (Auto) 0.7 Eos # (Auto) 0.0 Baso # (Auto) 0.0 Abs Immat Gran (auto) 0.02 Absolute Neuts (auto) 4.4 Absolute Nucleated RBC 0.000 Nucleated RBC % (auto) 0.0 PT 12.7 INR 1.1 APTT 32.8 D-Dimer 651 Sodium Potassium Chloride Carbon Dioxide Anion Gap BUN Creatinine Estim Creat Clear Calc Estimated GFR Random Glucose Calcium Magnesium Total Bilirubin Direct Bilirubin AST ALT Alkaline Phosphatase Troponin I High Sens B-Natriuretic Peptide 18 Total Protein Albumin TSH Urine Opiates Screen Ur Barbiturates Screen Ur Phencyclidine Scrn Ur Amphetamines Screen U Benzodiazepines Scrn Urine Cocaine Screen U Marijuana (THC) Screen COVID-19 ([facility]) COVID-19 Clin Com 12/20/20 12/20/20 12/20/20 14:07 14:21 14:42 WBC RBC Hgb Hct MCV MCH MCHC RDW Plt Count MPV Immature Gran % (Auto) Neut % (Auto) Lymph % (Auto) [place] % (Auto) Eos % (Auto) Baso % (Auto) Lymph # (Auto) [place] # (Auto) Eos # (Auto) Baso # (Auto) Abs Immat Gran (auto) Absolute Neuts (auto) Absolute Nucleated RBC Nucleated RBC % (auto) PT INR APTT D-Dimer Sodium 140 Potassium 4.0 Chloride 106 Carbon Dioxide 27 Anion Gap 11 L BUN 16 Creatinine 0.92 Estim Creat Clear Calc 94.1 Estimated GFR > 60 Random Glucose 111 Calcium 9.0 D Magnesium 2.1 Total Bilirubin 0.5 Direct Bilirubin 0.2 AST 13 ALT 20 Alkaline Phosphatase 69 Troponin I High Sens 3.6 B-Natriuretic Peptide Total Protein 6.2 L Albumin 4.1 TSH 1.26 Urine Opiates Screen Ur Barbiturates Screen Ur Phencyclidine Scrn Ur Amphetamines Screen U Benzodiazepines Scrn Urine Cocaine Screen U Marijuana (THC) Screen COVID-19 ([facility]) Negative COVID-19 Clin Com See Note 12/20/20 12/20/20 16:59 19:01 WBC RBC Hgb Hct MCV MCH MCHC RDW Plt Count MPV Immature Gran % (Auto) Neut % (Auto) Lymph % (Auto) [place] % (Auto) Eos % (Auto) Baso % (Auto) Lymph # (Auto) [place] # (Auto) Eos # (Auto) Baso # (Auto) Abs Immat Gran (auto) Absolute Neuts (auto) Absolute Nucleated RBC Nucleated RBC % (auto) PT INR APTT D-Dimer Sodium Potassium Chloride Carbon Dioxide Anion Gap BUN Creatinine Estim Creat Clear Calc Estimated GFR Random Glucose Calcium Magnesium Total Bilirubin Direct Bilirubin AST ALT Alkaline Phosphatase Troponin I High Sens 3.6 B-Natriuretic Peptide Total Protein Albumin TSH Urine Opiates Screen Not Detected Ur Barbiturates Screen Not Detected Ur Phencyclidine Scrn Not Detected Ur Amphetamines Screen Not Detected U Benzodiazepines Scrn Not Detected Urine Cocaine Screen Not Detected U Marijuana (THC) Screen Not Detected COVID-19 ([facility]) COVID-19 Clin Com Discharge Plan Discharge Patient Disposition: Home, Self-Care Discharge Diagnosis: Chest pain Referrals: Physician,Unknown [Primary Care Provider] - 1 Week Discharge Medications: Continued trazodone 100 mg Tablet 100 mg PO BEDTIME RF: 0 sertraline 50 mg Tablet 50 mg PO BEDTIME RF: 0 Discharge Orders: Discharge Order (Routine); Ordered 12/21/20 Ordered By: Luisa Rodas Diet: advance to usual diet Activity on Discharge: As tolerated Stand Alone Forms: Patient Portal Discharge page Care Plan Goals: Take all medications as before, no new medications has been prescribed Health Concerns: Chest pain, acute coronary syndrome ruled out continued outpatient follow-up with Cardiology and pulmonology Plan of Treatment: Outpatient follow-up with primary care physician Assessment: As above
--- NOTE | 2020-12-21 12:27 | MHC.CM.PN ---
CM met with pt who reports he lives at home with his who is also his HCP. Pt denies use of DME or home services. pt reports his PCP is Jenn Redding at the [place] [facility]. [facility] were delivered Pt will DC home today with no services will transport
== END 2020-12-21 13:17 | disposition home or self-care (01) | DRG 313 ==
LOC: HO.ED 18:13 → HO.IMC 19:17
PROVIDERS: Physician Assistant; Admitting Provider Hospitalist; Emergency Provider Emergency Medicine; Visit Provider Hospitalist
DX: R07.9 Chest pain, unspecified (principal); Q24.5 Malformation of coronary vessels; R06.00 Dyspnea, unspecified; E03.9 Hypothyroidism, unspecified; N40.0 Benign prostatic hyperplasia without lower urinary tract symptoms; F32.9 Major depressive disorder, single episode, unspecified; Z20.822 Contact with and (suspected) exposure to COVID-19; Z79.890 Hormone replacement therapy; Z79.899 Other long term (current) drug therapy
CPT/HCPCS: 36415; 71045; 71275; 80048; 80076; 80307; 83735; 83880; 84443; 84484; 85025; 85379; 85610; 85730; 87635; 93005; 99285; J1650; J1940; Q9967

== ENCOUNTER → 2021-01-03 14:27 | Outpatient (BNVA) | payer OTHER, SELFPAY | PROVIDERS: Visit Provider Internal Medicine Pulmonary Disease | DX: R06.00 Dyspnea, unspecified (principal) | CPT/HCPCS: 99212 ==